=== PATIENT | female | born 1965 | race Caucasian/White ===

== ENCOUNTER 2019-09-13 10:04 | Inpatient (IN) | payer MEDICAID ==
[~2019-09-13] VITALS: Ht 165.1 cm; Wt 81.8 kg
[2019-09-13] MEDS ORDERED: ketorolac trometh. 30mg/ml inj. IV ONE (10:25)
[2019-09-13] MEDS ORDERED: normal saline 1000ML IV soln IVB ONE ×2 (10:25→12:10)
[2019-09-13] MEDS ORDERED: ondansetron/PF 4mg/2ml inj IV ONE (10:25)
[2019-09-13 10:51] LABS: CLARITY,URINE CLOUDY (Clear); COLOR,URINE YELLOW (Yellow); GLUCOSE, URINE NEGATIVE (Neg); KETONES,URINE 40 mg/dl (Neg); LEUKOCYTE ESTERASE ,URINE NEGATIVE (Neg); NITRITES, URINE NEGATIVE (Neg); OCCULT BLOOD,URINE LARGE (Neg); PROTEIN,URINE 30 mg/dl (Neg); URINE HCG NEGATIVE (NEG)
[2019-09-13 10:53] LABS: UA COLLECTION TYPE CLN CATCH MIDSTREAM
[2019-09-13 10:58] LABS: MUCUS STRANDS MANY /LPF (Neg); SQUAMOUS EPITHELIAL CELL,UR MANY /LPF (FEW)
[2019-09-13 11:00] LABS: BASOPHILS # (AUTO) 0.1 X10'3 (0-0.2); BASOPHILS % (AUTO) 0.8 % (0-1); EOSINOPHILS # (AUTO) 0.1 X10'3 (0-0.9); EOSINOPHILS % (AUTO) 0.5 % (0-6); HEMOGLOBIN 14.4 g/dl (12.0-16.0); LYMPHOCYTES # (AUTO) 1.5 X10'3 (1.1-4.8); LYMPHOCYTES % (AUTO) 11.7 % (21-51); MEAN CORPUSCULAR HEMOGLOBIN 29.4 PG (27.0-31.0); MEAN CORPUSCULAR HGB CONC 33.5 g/dL (33.0-36.5); MEAN CORPUSCULAR VOLUME 87.6 FL (78-98); MONOCYTES # (AUTO) 0.7 X10'3 (0-0.9); MONOCYTES % (AUTO) 5.4 % (2-12); NEUTROPHILS # (AUTO) 10.5 X10'3 (1.8-7.7); NEUTROPHILS % (AUTO) 81.6 % (42-75); PLATELET COUNT 332 X10'3 (140-440); RED CELL DISTRIBUTION WIDTH 12.8 % (11.5-14.5); WHITE BLOOD COUNT 12.8 X10'3 (4.5-11.0)
[2019-09-13 11:02] LABS: BACTERIA,URINE FEW /HPF (Neg); RBC,URINE 50-100 /HPF (0-2)
[2019-09-13] MEDS ORDERED: lactulose 20gm/30ml cup PO ONE (11:05)
[2019-09-13] MEDS ORDERED: LORazepam 2 mg/ml vial IV ONE (11:05)
[2019-09-13] MEDS ORDERED: metoprolol tartrate 50mg tablet PO ONE (11:05)
[2019-09-13] MEDS ORDERED: magnesium hydroxide 30ml (MOM) UD suspension PO ONE (11:05)
[2019-09-13 11:14] LABS: ALANINE AMINOTRANSFERASE 23 U/L (12-78); ALBUMIN 3.8 G/DL (3.4-5.0); ALBUMIN/GLOBULIN RATIO 0.8 (1.1-1.5); ALKALINE PHOSPHATASE 100 IU/L (46-116); ANION GAP 10 (8-16); ASPARTATE AMINO TRANSFERASE 27 U/L (10-37); BILIRUBIN,TOTAL 0.6 MG/DL (0.1-1.0); BLOOD UREA NITROGEN 12 MG/DL (7-18); BUN/CREATININE RATIO 11.7 (6.6-38.0); CALCIUM 9.5 MG/DL (8.5-10.1); CHLORIDE 104 MMOL/L (99-107); CREATININE 1.03 MG/DL (0.40-0.90); GLUCOSE 123 MG/DL (70-104); POTASSIUM 3.6 MMOL/L (3.5-5.1); SODIUM 139 MMOL/L (135-145); TOTAL CARBON DIOXIDE 25.4 MMOL/L (24-32); TOTAL PROTEIN 8.3 G/DL (6.4-8.2); eGFR 56 ML/MIN
[2019-09-13 11:29] LABS: LIPASE 4235 U/L (73-393)
[2019-09-13] MEDS ORDERED: CefTRIAXone 2gm/D5W 50ml 50 ML IV ONE (11:30)
[2019-09-13] MEDS ORDERED: enalaprilat dihydrate 2.5mg/2ml vial IV ONE (12:35)
[2019-09-13] MEDS ORDERED: DOXYCYCLINE 100MG CAPSULE PO STA (12:48)
[2019-09-13] MEDS ORDERED: diphenhydrAMINE 50 mg/ml inj IV ONE (13:05)
[2019-09-13] MEDS ORDERED: metoclopramide 5 mg/ml inj IV ONE (13:05)
[2019-09-13] MEDS ORDERED: ACET-1025 PO (13:08)
[2019-09-13] MEDS ORDERED: HYDROcodone/acetaminophen 5mg/325mg tablet PO PRN (13:55)
[2019-09-13] MEDS ORDERED: potassium Cl 20 mEq SR tablet PO PRN (13:55)
[2019-09-13] MEDS ORDERED: diphenhydrAMINE 25mg capsule PO PRN (13:55)
[2019-09-13] MEDS ORDERED: potassium CL 10mEq/100ml bag 100 ML IV PRN ×2 (13:55)
[2019-09-13] MEDS ORDERED: mag hydrox/Alum hydrox/simeth 30ml oral suspension PO PRN (13:55)
[2019-09-13] MEDS ORDERED: magnesium 2GM in 50ml NS 50 ML IV PRN (13:55)
[2019-09-13] MEDS ORDERED: acetaminophen 650mg rectal suppository RC PRN (13:55)
[2019-09-13] MEDS ORDERED: magnesium 4gm in 100ml NS 100 ML IV PRN (13:55)
[2019-09-13] MEDS ORDERED: acetaminophen 325mg tablet PO PRN (13:55)
[2019-09-13] MEDS ORDERED: magnesium Cl slow-release 64mg tablet PO PRN (13:55)
[2019-09-13] MEDS ORDERED: magnesium hydroxide 30ml (MOM) UD suspension PO PRN (13:55)
[2019-09-13] MEDS ORDERED: HYDROcodone/acetaminophen 10/325mg tab PO PRN (13:55)
[2019-09-13] MEDS ORDERED: bisacodyl 10mg suppository rectal RC PRN (13:55)
[2019-09-13] MEDS ORDERED: morphine 2 MG/ML inj. syringe IV PRN ×2 (13:55)
--- NOTE | 2019-09-13 14:30 | NUR ---
Patient arrived to the floor blood pressure is 167/116 called supervisor metalizing to see if he wanted patient to still come to our floor. Per Lever Operator Karson take patient and go ahead and notify Dr Edwards, for further orders.
--- NOTE | 2019-09-13 14:31 | NUR ---
GOT REPORT FROM JULISA FOX IN ER
[2019-09-13 14:40] LABS: HEMOGLOBIN A1C 5.5 % (4.5-6.2)
[2019-09-13 14:45] VITALS: BP 167/116
--- NOTE | 2019-09-13 14:49 | NUR ---
PAGER ID: [phone] MESSAGE: Sue-[facility]urg [phone] Re: Guy PerezB Please call Pt blood pressure 167/116 HR 83
[2019-09-13] MEDS: dextrose 5%-normal saline 1,000 ML IV SCH ×2 (15:11→23:55)
--- NOTE | 2019-09-13 15:29 | NUR ---
SHIN COUGHLIN ABOUT HIGH BP, AWAITING CALL BACK Addendum: 09/13/19 at 1656 by Peyton Romero RN BP WAS 163/95 AND IS NOW 112/81 WITH A HEART RATE OF 83
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
[2019-09-13 18:05] VITALS: BP 168/105
[2019-09-13] MEDS ORDERED: propranolol 10mg tablet PO ONE (18:20)
--- NOTE | 2019-09-13 18:30 | NUR ---
Patient in room [facility]. I have received report from Peyton EGAN and had the opportunity to ask questions and assume patient care.
--- NOTE | 2019-09-13 18:44 | NUR ---
CALLED TO ORDER STAT UA, DID NOT ADDRESS CODE STATUS AT THIS TIME
--- NOTE | 2019-09-13 18:45 | NUR ---
Problems reprioritized. Patient report given, questions answered & plan of care reviewed with JULISA BAIRD.
[2019-09-13 19:41] LABS: CLARITY,URINE CLEAR (Clear); COLOR,URINE YELLOW (Yellow); GLUCOSE, URINE NEGATIVE (Neg); KETONES,URINE 15 mg/dl (Neg); LEUKOCYTE ESTERASE ,URINE NEGATIVE (Neg); NITRITES, URINE NEGATIVE (Neg); OCCULT BLOOD,URINE SMALL (Neg); PH,URINE 5.5 (4.8-8.0); PROTEIN,URINE NEGATIVE (Neg); UROBILINOGEN,URINE 0.2 E.U/dL (0.2-1.0)
[2019-09-13 19:43] LABS: UA COLLECTION TYPE STRAIGHT CATH
[2019-09-13 19:46] LABS: BACTERIA,URINE FEW /HPF (Neg); RBC,URINE 0-2 /HPF (0-2); SQUAMOUS EPITHELIAL CELL,UR MODERATE /LPF (FEW); WBC,URINE 0-4 /HPF (0-4)
[2019-09-13] MEDS: K and/or MAG REPLACEMENT MC SCH (20:00)
[2019-09-13] MEDS: heparin, porcine 5000 units/ml vial SQ SCH (20:15)
[2019-09-13 20:21] VITALS: BP 163/81
[2019-09-13] MEDS: propranolol 10mg tablet PO SCH (20:27)
[2019-09-13] MEDS: ondansetron/PF 4mg/2ml inj IV PRN (21:06)
[2019-09-13 23:30] VITALS: BP 172/105
[2019-09-13] MEDS: hydrALAZINE 20mg/ml inj. IV PRN (23:31)
[2019-09-14] VITALS (7 sets, daily range): BP systolic 123–197; BP diastolic 80–106
[2019-09-14] MEDS ORDERED: diphenhydrAMINE 50 mg/ml inj IV ONE (00:55)
[2019-09-14] MEDS ORDERED: proCHLORperazine 10 MG/2 ml inj IV PRN (00:55)
--- NOTE | 2019-09-14 00:56 | NUR ---
Called MD regarding consistent elevated BP since Er visit earlier. Machine 183/114, 87 , manual 170/110,88. Medications thus far have not helped significantly. Patient is also c/o more nausea. MD putting in orders for compazine and benadryl.
[2019-09-14] MEDS: dextrose 5%-normal saline 1,000 ML IV SCH ×2 (02:59→17:06)
[2019-09-14 05:24] LABS: ALANINE AMINOTRANSFERASE 17 U/L (12-78); ALBUMIN/GLOBULIN RATIO 0.8 (1.1-1.5); ALKALINE PHOSPHATASE 77 IU/L (46-116); ANION GAP 9 (8-16); ASPARTATE AMINO TRANSFERASE 22 U/L (10-37); BASOPHILS % (AUTO) 0.3 % (0-1); BILIRUBIN,TOTAL 0.4 MG/DL (0.1-1.0); BLOOD UREA NITROGEN 8 MG/DL (7-18); BUN/CREATININE RATIO 9.5 (6.6-38.0); CHLORIDE 107 MMOL/L (99-107); CHOL/HDL RATIO 3.4 (0.00-4.99); CHOLESTEROL 157 MG/DL (0-200); CREATININE 0.84 MG/DL (0.40-0.90); EOSINOPHILS % (AUTO) 0.2 % (0-6); GLUCOSE 138 MG/DL (70-104); HDL CHOLESTEROL 46 MG/DL (35-60); HEMATOCRIT 38.6 % (35.0-45.0); HEMOGLOBIN 12.9 g/dl (12.0-16.0); LDL CHOLESTEROL 96 MG/DL (50-100); LYMPHOCYTES # (AUTO) 1.1 X10'3 (1.1-4.8); MEAN CORPUSCULAR HEMOGLOBIN 29.4 PG (27.0-31.0); MEAN CORPUSCULAR HGB CONC 33.3 g/dL (33.0-36.5); MEAN CORPUSCULAR VOLUME 88.2 FL (78-98); MONOCYTES # (AUTO) 0.6 X10'3 (0-0.9); MONOCYTES % (AUTO) 5.7 % (2-12); NEUTROPHILS # (AUTO) 8.8 X10'3 (1.8-7.7); NEUTROPHILS % (AUTO) 83.8 % (42-75); PHOSPHORUS 2.7 MG/DL (2.3-4.5); PLATELET COUNT 291 X10'3 (140-440); POTASSIUM 3.5 MMOL/L (3.5-5.1); RED BLOOD COUNT 4.38 X10'6 (4.20-5.60); RED CELL DISTRIBUTION WIDTH 12.9 % (11.5-14.5); SODIUM 142 MMOL/L (135-145); TOTAL CARBON DIOXIDE 25.7 MMOL/L (24-32); TOTAL PROTEIN 6.9 G/DL (6.4-8.2); TRIGLYCERIDES 56 MG/DL (20-135); WHITE BLOOD COUNT 10.5 X10'3 (4.5-11.0); eGFR 71 ML/MIN
[2019-09-14 05:34] LABS: LIPASE 2327 U/L (73-393)
--- NOTE | 2019-09-14 06:43 | NUR ---
Patient in room [facility]. I have received report from JULISA Corea and had the opportunity to ask questions and assume patient care.
[2019-09-14] MEDS: K and/or MAG REPLACEMENT MC SCH ×2 (08:00→19:58)
[2019-09-14] MEDS: CefTRIAXone/D5W-Rocephin 1gm 50 ML IV SCH (08:47)
[2019-09-14] MEDS: propranolol 10mg tablet PO SCH ×3 (08:47→21:08)
[2019-09-14] MEDS: heparin, porcine 5000 units/ml vial SQ SCH ×2 (08:47→19:55)
[2019-09-14] MEDS: LORazepam 2 mg/ml vial IV PRN ×2 (08:55→19:35)
--- NOTE | 2019-09-14 10:32 | NUR ---
Malnutrition consult: Pt reports wt loss with decreased appetite per malnutrition risk screen with RN. Most recent scaled wt hx is 90.9 kg taken May 2012 with standing scale, current scaled wt is 81.8 kg (144% IBW). Pt currently NPO admit with acute pancreatitis, to get an MRCP as well as ultrasound of the liver and r/o gallstones per H&P. Pt currently on a 1798 hold with a sitter at bedside d/t c/o SI with depression. Pt documented with bilat gen 2+ mild edema and no significant decrease in muscle strength. Likely that pt experienced some changes in appetite and weight VAN DRIVER HELPER d/t pain secondary to pancreatitis however pt currently lacks a minimum of two criteria for malnutrition. Will continue to follow. Addendum: 09/14/19 at [address] Amended: Links added.
[2019-09-14] MEDS: hydrALAZINE 20mg/ml inj. IV PRN ×2 (11:29→19:42)
--- NOTE | 2019-09-14 18:11 | NUR ---
Problems reprioritized. Patient report given, questions answered & plan of care reviewed with Malina Corea.
--- NOTE | 2019-09-14 18:15 | NUR ---
Patient in room [facility]. I have received report from Whitley EGAN and had the opportunity to ask questions and assume patient care.
[2019-09-14] MEDS: docusate sod 100mg capsule PO SCH (19:54)
[2019-09-14] MEDS: lactobacillus rhamnosus 10,000 MMU CELLS/CAPSULE PO SCH (19:55)
[2019-09-15] MEDS: dextrose 5%-normal saline 1,000 ML IV SCH ×2 (05:16→16:47)
[2019-09-15] MEDS: ondansetron/PF 4mg/2ml inj IV PRN (05:19)
[2019-09-15 05:25] LABS: BASOPHILS % (AUTO) 0.4 % (0-1); EOSINOPHILS # (AUTO) 0.1 X10'3 (0-0.9); EOSINOPHILS % (AUTO) 0.9 % (0-6); HEMATOCRIT 38.6 % (35.0-45.0); HEMOGLOBIN 12.8 g/dl (12.0-16.0); LYMPHOCYTES # (AUTO) 1.2 X10'3 (1.1-4.8); LYMPHOCYTES % (AUTO) 10.4 % (21-51); MEAN CORPUSCULAR HEMOGLOBIN 28.7 PG (27.0-31.0); MEAN CORPUSCULAR VOLUME 86.9 FL (78-98); MEAN PLATELET VOLUME 9.4 FL (7.4-10.4); MONOCYTES # (AUTO) 0.8 X10'3 (0-0.9); MONOCYTES % (AUTO) 7.3 % (2-12); NEUTROPHILS # (AUTO) 9.1 X10'3 (1.8-7.7); PLATELET COUNT 317 X10'3 (140-440); RED BLOOD COUNT 4.44 X10'6 (4.20-5.60); WHITE BLOOD COUNT 11.3 X10'3 (4.5-11.0)
[2019-09-15 05:40] LABS: ALANINE AMINOTRANSFERASE 17 U/L (12-78); ALBUMIN 3.2 G/DL (3.4-5.0); ALBUMIN/GLOBULIN RATIO 0.8 (1.1-1.5); ALKALINE PHOSPHATASE 81 IU/L (46-116); ANION GAP 11 (8-16); ASPARTATE AMINO TRANSFERASE 26 U/L (10-37); BILIRUBIN,TOTAL 0.6 MG/DL (0.1-1.0); BLOOD UREA NITROGEN 7 MG/DL (7-18); BUN/CREATININE RATIO 7.8 (6.6-38.0); CALCIUM 8.8 MG/DL (8.5-10.1); CHLORIDE 103 MMOL/L (99-107); GLUCOSE 133 MG/DL (70-104); LIPASE 1404 U/L (73-393); MAGNESIUM 2.1 MG/DL (1.5-2.4); PHOSPHORUS 2.4 MG/DL (2.3-4.5); SODIUM 139 MMOL/L (135-145); TOTAL PROTEIN 7.4 G/DL (6.4-8.2); eGFR 65 ML/MIN
--- NOTE | 2019-09-15 06:42 | NUR ---
Problems reprioritized. Patient report given, questions answered & plan of care reviewed with Calderon RN.
[2019-09-15 06:52] VITALS: BP 172/90
[2019-09-15] MEDS: hydrALAZINE 20mg/ml inj. IV PRN (07:41)
[2019-09-15] MEDS: CefTRIAXone/D5W-Rocephin 1gm 50 ML IV SCH (07:41)
[2019-09-15] MEDS: heparin, porcine 5000 units/ml vial SQ SCH ×2 (08:00→22:55)
[2019-09-15] MEDS: K and/or MAG REPLACEMENT MC SCH ×2 (08:00→19:54)
[2019-09-15] MEDS: propranolol 10mg tablet PO SCH ×3 (08:46→23:35)
[2019-09-15] MEDS: docusate sod 100mg capsule PO SCH ×2 (08:46→19:56)
[2019-09-15] MEDS: lactobacillus rhamnosus 10,000 MMU CELLS/CAPSULE PO SCH ×2 (08:46→19:56)
[2019-09-15 11:00] VITALS: BP 156/88
[2019-09-15 13:51] VITALS: BP 162/86
[2019-09-15] MEDS: potassium Cl 20 mEq SR tablet PO PRN ×2 (15:56→20:01)
--- NOTE | 2019-09-15 18:50 | NUR ---
Problems reprioritized. Patient report given, questions answered & plan of care reviewed with Linda EGAN.
[2019-09-15] MEDS: acetaminophen 325mg tablet PO PRN (19:56)
[2019-09-15 20:00] VITALS: BP 153/89
[2019-09-15] MEDS ORDERED: barium sulfate 450ml oral suspension PO ONE (21:00)
[2019-09-15] MEDS ORDERED: prednisone 10mg tablet PO PRN ×2 (21:00)
[2019-09-16] VITALS (15 sets, daily range): BP systolic 124–190; BP diastolic 61–104
[2019-09-16] MEDS: dextrose 5%-normal saline 1,000 ML IV SCH ×3 (01:57→23:39)
--- NOTE | 2019-09-16 02:22 | NUR ---
Patient refused her last dose of 40MEQ of potassium this morning.
[2019-09-16 05:37] LABS: BASOPHILS # (AUTO) 0.1 X10'3 (0-0.2); EOSINOPHILS # (AUTO) 0.5 X10'3 (0-0.9); HEMOGLOBIN 12.4 g/dl (12.0-16.0); LYMPHOCYTES # (AUTO) 1.2 X10'3 (1.1-4.8)
[2019-09-16 05:39] LABS: BASOPHILS % (AUTO) 0.6 % (0-1); EOSINOPHILS % (AUTO) 3.9 % (0-6); LYMPHOCYTES % (AUTO) 9.6 % (21-51); MEAN CORPUSCULAR HEMOGLOBIN 29.5 PG (27.0-31.0); MEAN CORPUSCULAR HGB CONC 33.6 g/dL (33.0-36.5); MEAN CORPUSCULAR VOLUME 87.8 FL (78-98); MEAN PLATELET VOLUME 9.3 FL (7.4-10.4); MONOCYTES % (AUTO) 8.3 % (2-12); NEUTROPHILS # (AUTO) 9.6 X10'3 (1.8-7.7); NEUTROPHILS % (AUTO) 77.6 % (42-75); PARTIAL THROMBOPLASTIN TIME 26 SECONDS (22-32); RED BLOOD COUNT 4.21 X10'6 (4.20-5.60); RED CELL DISTRIBUTION WIDTH 12.9 % (11.5-14.5); WHITE BLOOD COUNT 12.3 X10'3 (4.5-11.0)
[2019-09-16 05:43] LABS: ALANINE AMINOTRANSFERASE 17 U/L (12-78); ALBUMIN/GLOBULIN RATIO 0.7 (1.1-1.5); ALKALINE PHOSPHATASE 81 IU/L (46-116); ANION GAP 9 (8-16); ASPARTATE AMINO TRANSFERASE 26 U/L (10-37); BILIRUBIN,TOTAL 0.6 MG/DL (0.1-1.0); BLOOD UREA NITROGEN 7 MG/DL (7-18); BUN/CREATININE RATIO 9.1 (6.6-38.0); CALCIUM 8.4 MG/DL (8.5-10.1); CHLORIDE 105 MMOL/L (99-107); CREATININE 0.77 MG/DL (0.40-0.90); GLUCOSE 119 MG/DL (70-104); LIPASE 1024 U/L (73-393); MAGNESIUM 2.2 MG/DL (1.5-2.4); PHOSPHORUS 2.1 MG/DL (2.3-4.5); POTASSIUM 3.7 MMOL/L (3.5-5.1); SODIUM 139 MMOL/L (135-145); TOTAL CARBON DIOXIDE 24.7 MMOL/L (24-32); TOTAL PROTEIN 7.4 G/DL (6.4-8.2); eGFR 78 ML/MIN
--- NOTE | 2019-09-16 06:46 | NUR ---
Patient in room [facility]. I have received report from JULISA Mckeon and had the opportunity to ask questions and assume patient care.
[2019-09-16 07:00] LABS: PLATELET COUNT 280 X10'3 (140-440)
[2019-09-16] MEDS ORDERED: barium sulfate 450ml oral suspension PO ONE ×2 (07:00→21:00)
[2019-09-16] MEDS: heparin, porcine 5000 units/ml vial SQ SCH ×2 (07:21→21:01)
[2019-09-16] MEDS: ondansetron/PF 4mg/2ml inj IV PRN (07:31)
[2019-09-16] MEDS: propranolol 10mg tablet PO SCH ×3 (07:31→20:59)
[2019-09-16] MEDS: docusate sod 100mg capsule PO SCH ×2 (07:31→21:00)
[2019-09-16] MEDS: lactobacillus rhamnosus 10,000 MMU CELLS/CAPSULE PO SCH ×2 (07:31→21:00)
[2019-09-16] MEDS: CefTRIAXone/D5W-Rocephin 1gm 50 ML IV SCH (07:31)
[2019-09-16] MEDS: K and/or MAG REPLACEMENT MC SCH ×2 (08:00→20:00)
[2019-09-16] MEDS ORDERED: diphenhydrAMINE 25mg capsule PO ONE (09:00)
[2019-09-16] MEDS: acetaminophen 325mg tablet PO PRN (09:27)
--- NOTE | 2019-09-16 13:51 | NUR ---
Pt to OR. RN not notified prior to pickup, unable to note exact time. Accucheck unable to be completed prior to transport.
[2019-09-16] MEDS ORDERED: sevoflurane 250ml liquid IH ONE (14:41)
[2019-09-16] MEDS ORDERED: propofol inj 20 ML IV ONE (14:44)
[2019-09-16] MEDS ORDERED: midazolam 2 mg/2 ml injection ONE (14:44)
[2019-09-16] MEDS ORDERED: fentaNYL /PF 50mcg/ml 5ml ampule ONE (14:44)
[2019-09-16] MEDS ORDERED: ceFOXitin 2GM-NS 50mL ADDVANT. 50 ML IV ONE (14:54)
[2019-09-16] MEDS ORDERED: ceFAZolin 1000mg inj ONE (15:07)
[2019-09-16] MEDS ORDERED: BUPIVAcaine/PF 2.5 mg/ml (0.25%) 30ml vial ONE (15:08)
[2019-09-16] MEDS ORDERED: ringers solution, lacted 1,000 ML IV SCH (15:12)
[2019-09-16] MEDS ORDERED: HYDROmorphone inj. 0.5 MG/0.5 ML DISP.SYRIN IV PRN ×2 (15:15)
[2019-09-16] MEDS ORDERED: meperidine/PF 25mg/ml syringe IV PRN ×3 (15:15)
[2019-09-16] MEDS ORDERED: ondansetron/PF 4mg/2ml inj IV PRN ×2 (15:15→16:05)
[2019-09-16] MEDS ORDERED: rocuronium 10mg/ml inj IV ONE (15:59)
[2019-09-16] MEDS ORDERED: neostigmine methylsulfate 1 MG/ML 10ml vial ONE (16:03)
[2019-09-16] MEDS ORDERED: glycopyrrolate 0.2mg/ml inj ONE (16:03)
[2019-09-16] MEDS ORDERED: oxyCODONE/APAP 10/325mg tablet PO PRN (16:05)
--- NOTE | 2019-09-16 16:14 | NUR ---
Received from OR via , accompanied by Anesthesiologist DR SHAW and report given by Anesthesiolgist. AWAKENS TO VOICE. VITALS STABLE. DRESSINGS DI. LISET PAIN. ABD SOFT.
--- NOTE | 2019-09-16 16:54 | NUR ---
Report called to receiving nurse. Transferred via BED Belongings . Special Issues communicated to receiving nurse. AWAKE AND ORIENTED. VITALS STABLE. DRESSINGS DI. STATES PAIN IMPROVING. TO SURGICAL RM 345B AT THIS TIME.
--- NOTE | 2019-09-16 17:00 | NUR ---
pt returned to surgical floor via surgical bed. post op vital signs started. will continue to monitor.
[2019-09-16] MEDS ORDERED: hydrALAZINE 20mg/ml inj. IV PRN (17:40)
[2019-09-16] MEDS ORDERED: hydrALAZINE 20mg/ml inj. IV ONE (17:40)
--- NOTE | 2019-09-16 17:44 | NUR ---
Dr Edwards notified of post op BP of 190/101 HR 58. Orders received for 1 time dose 20mg hydralazine.
--- NOTE | 2019-09-16 18:31 | NUR ---
Problems reprioritized. Patient report given, questions answered & plan of care reviewed with JULISA Mckeon.
[2019-09-16] MEDS: prednisone 10mg tablet PO PRN (21:01)
[2019-09-16] MEDS: amLODIPine 5mg tablet PO SCH (23:40)
[2019-09-17] VITALS: BP 163/89
--- NOTE | 2019-09-17 00:32 | NUR ---
Patient desats to 88% when she falls asleep on RA. Continue with 2L o2 at night.
[2019-09-17] MEDS: prednisone 10mg tablet PO PRN ×2 (03:09→08:55)
[2019-09-17 04:00] VITALS: BP 149/100
[2019-09-17 05:11] LABS: BASOPHILS % (AUTO) 0.3 % (0-1); EOSINOPHILS % (AUTO) 0.1 % (0-6); HEMATOCRIT 34.7 % (35.0-45.0); HEMOGLOBIN 11.6 g/dl (12.0-16.0); LYMPHOCYTES # (AUTO) 0.5 X10'3 (1.1-4.8); LYMPHOCYTES % (AUTO) 4.5 % (21-51); MEAN CORPUSCULAR HEMOGLOBIN 29.5 PG (27.0-31.0); MEAN CORPUSCULAR HGB CONC 33.5 g/dL (33.0-36.5); MEAN CORPUSCULAR VOLUME 88.3 FL (78-98); MEAN PLATELET VOLUME 9.1 FL (7.4-10.4); MONOCYTES # (AUTO) 0.2 X10'3 (0-0.9); MONOCYTES % (AUTO) 1.8 % (2-12); NEUTROPHILS # (AUTO) 10.5 X10'3 (1.8-7.7); NEUTROPHILS % (AUTO) 93.3 % (42-75); PLATELET COUNT 288 X10'3 (140-440); RED BLOOD COUNT 3.93 X10'6 (4.20-5.60); WHITE BLOOD COUNT 11.3 X10'3 (4.5-11.0)
[2019-09-17 05:34] LABS: ALANINE AMINOTRANSFERASE 37 U/L (12-78); ALBUMIN 2.7 G/DL (3.4-5.0); ALBUMIN/GLOBULIN RATIO 0.6 (1.1-1.5); ALKALINE PHOSPHATASE 81 IU/L (46-116); ANION GAP 9 (8-16); ASPARTATE AMINO TRANSFERASE 45 U/L (10-37); BILIRUBIN,TOTAL 0.3 MG/DL (0.1-1.0); BLOOD UREA NITROGEN 5 MG/DL (7-18); BUN/CREATININE RATIO 6.2 (6.6-38.0); CALCIUM 8.5 MG/DL (8.5-10.1); CHLORIDE 105 MMOL/L (99-107); CREATININE 0.81 MG/DL (0.40-0.90); GLUCOSE 145 MG/DL (70-104); LIPASE 511 U/L (73-393); MAGNESIUM 2.2 MG/DL (1.5-2.4); PHOSPHORUS 3.3 MG/DL (2.3-4.5); POTASSIUM 3.6 MMOL/L (3.5-5.1); SODIUM 140 MMOL/L (135-145); TOTAL CARBON DIOXIDE 26.2 MMOL/L (24-32); TOTAL PROTEIN 6.9 G/DL (6.4-8.2); eGFR 74 ML/MIN
--- NOTE | 2019-09-17 06:43 | NUR ---
Patient in room [facility]. I have received report from JULISA Mckeon and had the opportunity to ask questions and assume patient care.
[2019-09-17] MEDS ORDERED: barium sulfate 450ml oral suspension PO ONE (07:00)
[2019-09-17] MEDS: CefTRIAXone/D5W-Rocephin 1gm 50 ML IV SCH (07:24)
[2019-09-17] MEDS: propranolol 10mg tablet PO SCH ×3 (07:25→20:59)
[2019-09-17] MEDS: docusate sod 100mg capsule PO SCH ×2 (07:25→20:51)
[2019-09-17] MEDS: amLODIPine 5mg tablet PO SCH (07:25)
[2019-09-17] MEDS: lactobacillus rhamnosus 10,000 MMU CELLS/CAPSULE PO SCH ×2 (07:25→20:51)
[2019-09-17] MEDS: heparin, porcine 5000 units/ml vial SQ SCH ×2 (07:26→20:52)
[2019-09-17] MEDS: dextrose 5%-normal saline 1,000 ML IV SCH ×2 (07:55→21:03)
[2019-09-17 08:00] VITALS: BP 129/76
[2019-09-17] MEDS: K and/or MAG REPLACEMENT MC SCH ×2 (08:00→20:00)
[2019-09-17] MEDS ORDERED: diphenhydrAMINE 25mg capsule PO ONE (09:00)
[2019-09-17] MEDS ORDERED: iohexol 300mg/ml 100ml inj. ONE (10:28)
--- NOTE | 2019-09-17 10:35 | NUR ---
pt transported to CT via wheelchair
[2019-09-17 11:30] VITALS: BP 140/87
[2019-09-17 18:00] VITALS: BP 157/88
--- NOTE | 2019-09-17 18:00 | NUR ---
Received pt. care report from nurse Prema EGAN. Care reported accepted Addendum: 09/17/19 at 2014 by Raquel Solis RN Amended: Links added.
--- NOTE | 2019-09-17 18:48 | NUR ---
Problems reprioritized. Patient report given, questions answered & plan of care reviewed with JULISA García.
--- NOTE | 2019-09-17 20:00 | NUR ---
Pt A & O this shift and pleasant with no agitation episode at this time. No c/o pain at this time. No c/o of suicidal idealogy at this time. Sitter in place for patient's safety. Addendum: 09/18/19 at 0247 by Raquel Solis RN Amended: Links added.
[2019-09-17] MEDS: acetaminophen 325mg tablet PO PRN (23:57)
[2019-09-18] VITALS: BP 141/88
[2019-09-18 05:33] LABS: ALANINE AMINOTRANSFERASE 38 U/L (12-78); ALBUMIN 2.7 G/DL (3.4-5.0); ALBUMIN/GLOBULIN RATIO 0.7 (1.1-1.5); ALKALINE PHOSPHATASE 82 IU/L (46-116); ANION GAP 6 (8-16); ASPARTATE AMINO TRANSFERASE 35 U/L (10-37); BILIRUBIN,TOTAL 0.3 MG/DL (0.1-1.0); CALCIUM 8.6 MG/DL (8.5-10.1); CHLORIDE 105 MMOL/L (99-107); CREATININE 0.89 MG/DL (0.40-0.90); GLUCOSE 129 MG/DL (70-104); LIPASE 676 U/L (73-393); MAGNESIUM 2.2 MG/DL (1.5-2.4); PHOSPHORUS 2.4 MG/DL (2.3-4.5); SODIUM 140 MMOL/L (135-145); TOTAL CARBON DIOXIDE 28.9 MMOL/L (24-32); TOTAL PROTEIN 6.8 G/DL (6.4-8.2); eGFR 66 ML/MIN
[2019-09-18 05:35] LABS: BLOOD UREA NITROGEN 8 MG/DL (7-18)
[2019-09-18 05:39] LABS: POTASSIUM 2.8 MMOL/L (3.5-5.1)
--- NOTE | 2019-09-18 05:40 | NUR ---
Critical lab results of K+ 2.8 received at 0540; results paged to Dr. Carias. Addendum: 09/18/19 at 0744 by Raquel Solis RN Amended: Links added.
[2019-09-18 05:55] LABS: BASOPHILS % (AUTO) 0.2 % (0-1); EOSINOPHILS % (AUTO) 0.2 % (0-6); HEMATOCRIT 35.6 % (35.0-45.0); HEMOGLOBIN 11.9 g/dl (12.0-16.0); LYMPHOCYTES # (AUTO) 1.6 X10'3 (1.1-4.8); LYMPHOCYTES % (AUTO) 10.6 % (21-51); MEAN CORPUSCULAR HEMOGLOBIN 28.8 PG (27.0-31.0); MEAN CORPUSCULAR HGB CONC 33.4 g/dL (33.0-36.5); MEAN CORPUSCULAR VOLUME 86.5 FL (78-98); NEUTROPHILS # (AUTO) 12.2 X10'3 (1.8-7.7); PLATELET COUNT 355 X10'3 (140-440); RED BLOOD COUNT 4.12 X10'6 (4.20-5.60); RED CELL DISTRIBUTION WIDTH 12.6 % (11.5-14.5); WHITE BLOOD COUNT 14.8 X10'3 (4.5-11.0)
--- NOTE | 2019-09-18 06:00 | NUR ---
Patient report given to day shift nurse Christina EGAN. Care f/u needs discussed with Christina EGAN. Addendum: 09/18/19 at 0741 by Raquel Solis RN Amended: Links added.
--- NOTE | 2019-09-18 06:55 | NUR ---
Patient in room [facility]. I have received report from JULISA García and had the opportunity to ask questions and assume patient care.
[2019-09-18 07:00] VITALS: BP 131/92
[2019-09-18] MEDS: K and/or MAG REPLACEMENT MC SCH ×3 (08:00→20:00)
[2019-09-18] MEDS: CefTRIAXone/D5W-Rocephin 1gm 50 ML IV SCH (08:02)
[2019-09-18] MEDS: propranolol 10mg tablet PO SCH ×3 (08:03→21:03)
[2019-09-18] MEDS: lactobacillus rhamnosus 10,000 MMU CELLS/CAPSULE PO SCH ×2 (08:03→21:05)
[2019-09-18] MEDS: amLODIPine 5mg tablet PO SCH (08:03)
[2019-09-18] MEDS: docusate sod 100mg capsule PO SCH ×2 (08:03→21:04)
[2019-09-18] MEDS: heparin, porcine 5000 units/ml vial SQ SCH ×2 (08:04→21:13)
[2019-09-18] MEDS ORDERED: potassium CL 10mEq/100ml bag 100 ML IV PRN (09:35)
[2019-09-18] MEDS ORDERED: potassium Cl 20 mEq SR tablet PO PRN (09:35)
[2019-09-18] MEDS ORDERED: magnesium 4gm in 100ml NS 100 ML IV PRN (09:35)
[2019-09-18] MEDS ORDERED: magnesium Cl slow-release 64mg tablet PO PRN (09:35)
[2019-09-18] MEDS: potassium Cl 20 mEq SR tablet PO PRN ×3 (10:45→21:06)
[2019-09-18 11:19] VITALS: BP 146/77
[2019-09-18 11:36] LABS: URINE AMPHETAMINE SCREEN NEGATIVE (Neg); URINE BARBITUATE SCREEN NEGATIVE (Neg); URINE BENZODIAZEPINES SCREEN NEGATIVE (Neg); URINE CANNABINOID SCREEN POSITIVE (Neg); URINE COCAINE SCREEN NEGATIVE (Neg); URINE METHADONE SCREEN NEGATIVE (Neg); URINE OPIATE SCREEN NEGATIVE (Neg); URINE PHENCYCLIDINE SCREEN NEGATIVE (Neg)
--- NOTE | 2019-09-18 11:48 | NUR ---
Initial: Pt admit with acute pancreatitis secondary to gallstones. Pt now s/p lap cholecystectomy POD #2. Diet has been advanced to regular and pt documented with 75-100% PO intake meeting nutrient needs. Pt remains on a 1799 hold with a sitter at bedside. LBM 09/14, receiving routine bowel care. No nutrition intervention warranted at this time. Will continue to follow. Recommendations: 1) Continue regular diet 2) Routine bowel care 3) Scaled weights per rx Addendum: 09/18/19 at [address] Amended: Links added.
[2019-09-18 14:43] VITALS: BP 136/89
--- NOTE | 2019-09-18 18:17 | NUR ---
Patient in room [facility]. I have received report from JULISA Barillas and had the opportunity to ask questions and assume patient care.
--- NOTE | 2019-09-18 18:32 | NUR ---
Dr Edwards Cleared PT Medically. Notified [facility]. they asked for copy of note. Faxed to [facility] at [phone]. Rep indicated they were available for eval until [facility] today and again 0800 tomorrow.
--- NOTE | 2019-09-18 18:35 | NUR ---
Patient in room [facility]. I have received report from TEMO EGAN and had the opportunity to ask questions and assume patient care.
[2019-09-18 20:00] VITALS: BP 135/91
[2019-09-18] MEDS: ondansetron/PF 4mg/2ml inj IV PRN (21:07)
--- NOTE | 2019-09-18 22:00 | NUR ---
[facility] WAS HERE TO EVALUATE PATIENT AND SHE IS NOT A 5150 AT THIS TIME.
[2019-09-19] VITALS: BP 133/75
--- NOTE | 2019-09-19 06:30 | NUR ---
Problems reprioritized. Patient report given, questions answered & plan of care reviewed with TEO EGAN.
[2019-09-19 07:00] VITALS: BP 158/96
--- NOTE | 2019-09-19 07:13 | NUR ---
Patient in room [facility]. I have received report from Brenda Gutierrez RN and had the opportunity to ask questions and assume patient care.
[2019-09-19] MEDS: heparin, porcine 5000 units/ml vial SQ SCH ×2 (08:00→20:00)
[2019-09-19] MEDS: K and/or MAG REPLACEMENT MC SCH ×2 (08:00→20:00)
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
[2019-09-19] MEDS: CefTRIAXone/D5W-Rocephin 1gm 50 ML IV SCH (08:30)
[2019-09-19] MEDS: amLODIPine 5mg tablet PO SCH (08:31)
[2019-09-19] MEDS: lactobacillus rhamnosus 10,000 MMU CELLS/CAPSULE PO SCH ×2 (08:31→20:00)
[2019-09-19] MEDS: docusate sod 100mg capsule PO SCH ×2 (08:31→20:00)
[2019-09-19] MEDS: propranolol 10mg tablet PO SCH ×3 (08:31→21:00)
[2019-09-19 09:06] LABS: ALBUMIN 2.8 G/DL (3.4-5.0); ANION GAP 7 (8-16); BLOOD UREA NITROGEN 9 MG/DL (7-18); BUN/CREATININE RATIO 10.5 (6.6-38.0); CALCIUM 8.9 MG/DL (8.5-10.1); CHLORIDE 102 MMOL/L (99-107); CREATININE 0.86 MG/DL (0.40-0.90); GLUCOSE 122 MG/DL (70-104); POTASSIUM 3.8 MMOL/L (3.5-5.1); SODIUM 140 MMOL/L (135-145); TOTAL CARBON DIOXIDE 31.2 MMOL/L (24-32); eGFR 69 ML/MIN
--- NOTE | 2019-09-19 16:40 | NUR ---
PAGER ID: [phone] MESSAGE: Kimberly Tovar #[phone] Pt's IV infiltrated and had to be removed. She refused a new IV. Can she be without an IV?? Thank you. Kaycee Peters Addendum: 09/19/19 at 1653 by Kaycee Hanley RN Pt continuous to refused a new IV, Dr Edwards Notified.
--- NOTE | 2019-09-19 18:10 | NUR ---
Problems reprioritized. Patient report given, questions answered & plan of care reviewed with Lisset New Rn.
--- NOTE | 2019-09-19 18:36 | NUR ---
Patient in room [facility]. I have received report from JULISA Benoit and had the opportunity to ask questions and assume patient care. Addendum: 09/19/19 at 1836 by Linh Barrow RN Amended: Links added.
[2019-09-19 20:00] VITALS: BP 130/96
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
[2019-09-20] VITALS: BP 176/108
[2019-09-20] MEDS: propranolol 10mg tablet PO SCH (00:49)
--- NOTE | 2019-09-20 00:57 | NUR ---
offered patient her BP med since her BP was 176/108 and she took it, educate her about her medication and importance of taking her scheduled meds
--- NOTE | 2019-09-20 06:31 | NUR ---
patient became verbally aggressive and wanted to go down to the lobby, security was called and assisted patient. pt no longer on 5149 and 1798, so patient signed AMA form, assisted by security down at the lobby. pt has no belongings noted and she was wearing her personal clothes.
== END 2019-09-20 06:00 | disposition left against medical advice (07) | DRG 263 ==
LOC: ER 10:04 → ED HOLD 13:51 → SUR 3N 14:47
PROVIDERS: ADMIT Family Medicine; ATTEND Family Medicine
PROC: 0FT44ZZ Resection of Gallbladder, Percutaneous Endoscopic Approach (ICD-10-PCS; principal; 2019-09-16 14:41)
DX: K85.10 Biliary acute pancreatitis without necrosis or infection (principal); R45.851 Suicidal ideations; F20.9 Schizophrenia, unspecified; E78.5 Hyperlipidemia, unspecified; F32.9 Major depressive disorder, single episode, unspecified; E66.9 Obesity, unspecified; F41.9 Anxiety disorder, unspecified; K80.50 Calculus of bile duct without cholangitis or cholecystitis without obstruction; Z53.29 Procedure and treatment not carried out because of patient's decision for other reasons; E87.6 Hypokalemia; I10 Essential (primary) hypertension; K82.8 Other specified diseases of gallbladder; N39.0 Urinary tract infection, site not specified; F12.90 Cannabis use, unspecified, uncomplicated; R93.89 Abnormal findings on diagnostic imaging of other specified body structures; Z66 Do not resuscitate; Z80.8 Family history of malignant neoplasm of other organs or systems; Z87.891 Personal history of nicotine dependence; Z68.30 Body mass index [BMI] 30.0-30.9, adult; Z91.041 Radiographic dye allergy status; Z91.013 Allergy to seafood
CPT/HCPCS: 36415; 71045; 74176; 74177; 74181; 76700; 80048; 80053; 80061; 80305; 81001; 81025; 83036; 83605; 83690; 83735; 84100; 84145; 85025; 85610; 85730; 86885; 86900; 86901; 87040; 87081; 87088; 93005; 96361; 96365; 96375; 99285; A4215; A4314; A4618; A7000; G0378; J0360; J0690; J0694; J0696; J0780; J1200; J1644; J1885; J2060; J2175; J2250; J2405; J2704; J2710; J2765; J3010; J3490; J7030; J7042; J7120; J7512; Q0163; Q9967